=== PATIENT | female | born 1995 | race Hispanic/Latino ===

== ENCOUNTER 2018-05-29 21:14 | Day surgery (SDC) | payer OTHER ==
[2018-05-29 21:50] VITALS: BP 132/90; TEMP 98.9; BMI 37.1
[2018-05-29 22:20] LABS: Amnisure Test No Membranes Rupture (No Rupture)
[2018-05-29 22:21] LABS: Amnisure Internal Control QC ACCEPTABLE (ACCEPTABLE)
--- NOTE | 2018-05-29 23:30 | PRG ---
DATE OF SERVICE: 05/29/2018 OB ED NOTE TIME OF SERVICE: 2234 PRESENTING COMPLAINTS: Contractions at 39 weeks. HISTORY OF PRESENT ILLNESS: Robby is a patient of Dr. Muhammad, with an LISS of 06/03, placing her at 39 weeks gestation. She is a 22-year-old, G3, P2. No other details of her OB history are noted in the antepartum record. She seems to had an uncomplicated with multiple visits in her early involvement of care. She is blood type O positive, antibody negative, Pap negative, rubella immune, VDRL nonreactive. Hepatitis B, GC, chlamydia negative. Group B strep negative. She complains of mild contractions and possible rupture of membranes. PAST MEDICAL HISTORY: Denies. PAST SURGICAL HISTORY: Denies. ALLERGIES: DENIES. MEDICATIONS: vitamins. SOCIAL HISTORY: Denies tobacco, alcohol, or drug use. FAMILY HISTORY: Noncontributory. REVIEW OF SYSTEMS: Noncontributory. PHYSICAL EXAMINATION: GENERAL: female, in no acute distress. VITAL SIGNS: Blood pressure 122/82, pulse 85, respirations 18, temperature 98.2. HEENT within normal limits. LUNGS: Clear to auscultation bilaterally. HEART: Regular rhythm. ABDOMEN: Soft and nontender. Occasional abdominal contractions. FHTs are 130s to 140s. GENITALIA: Vulva without lesions. Vagina is without discharge. Cervix 2, 50, -2, cephalic, ballots by RN exam. AmniSure was collected and was negative. EXTREMITIES: No clubbing, cyanosis, or edema. heart rate tracing was carried out for greater than 30 minutes revealed a reactive strip, occasional contractions, and a category 1 tracing. No evidence of active labor was noted. IMPRESSION: No evidence of rupture of membranes. No evidence of active labor, 39 weeks gestation. PLAN: Discharge home. Keep scheduled followup with Dr. Muhammad. The patient has scheduled induction of labor on 06/06/2018. Job ID: [id number]
== END 2018-05-29 22:40 | disposition home or self-care (01) ==
LOC: L&D/OP 21:14
PROVIDERS: ATTEND Family Medicine
DX: O47.1 False labor at or after 37 completed weeks of gestation (principal); Z3A.39 39 weeks gestation of pregnancy
CPT/HCPCS: 84112; 99283

== ENCOUNTER 2018-06-05 11:43 | Inpatient (IN) | payer MEDICAID, OTHER, SELFPAY ==
[2018-06-05] MEDS ORDERED: Ondansetron PF 4 MG/2 ML Vial IVP PRN ×3 (12:14→16:48)
[2018-06-05] MEDS ORDERED: Ibuprofen 800 MG TAB PO PRN (12:14)
[2018-06-05] MEDS ORDERED: Lidocaine 1% (PF) 30 ML VIAL SC PRN (12:14)
[2018-06-05] MEDS ORDERED: HYDROcodone/Acetaminophen 5/325 mg Tablet PO PRN ×4 (12:14→16:48)
[2018-06-05] MEDS ORDERED: Promethazine HCl 25 MG/ML VIAL IM PRN ×2 (12:14→13:50)
[2018-06-05] MEDS ORDERED: Butorphanol Tartrate 1 MG/ML VIAL SLOW IVP PRN (12:14)
[2018-06-05] MEDS ORDERED: NS / Oxytocin 40 units/1000ml 1,000 ML IV PRN (12:14)
[2018-06-05] MEDS ORDERED: NS w/ Oxytocin 10 units 500 ML IV SCH (12:15)
[2018-06-05] MEDS ORDERED: Lactated Ringer's 1,000 ML IV SCH (12:15)
[2018-06-05] MEDS: Lactated Ringer's 1,000 ML IV SCH ×2 (12:33→13:57)
[2018-06-05 12:38] LABS: Mean Corpuscular HGB CONC 32.6 g/dL (32.0-36.0); Mean Corpuscular Hemoglobin 26.5 pg (27.0-31.0); Mean Corpuscular Volume 81.1 fL (78.0-98.0); Mean Platelet Volume 8.7 fL (7.4-10.4); Platelet Count 256 thou/uL (130-400); RBC Distribution Width 13.8 % (11.5-14.5); Red Blood Cell (RBC) Count 4.53 mill/uL (4.20-5.40); White Blood Cell (WBC) Count 9.6 thou/uL (4.8-10.8)
[2018-06-05 12:52] VITALS: BMI 37.1
[2018-06-05] MEDS ORDERED: Fentanyl 4 mcg/Bup 0.1% Cadd 100 ML ONE (13:02)
[2018-06-05 13:09] LABS: Syphilis Antibody Nonreactive (Nonreactive); Syphilis Antibody Index 0.03 S/CO (<1.00 Non-Reactive)
[2018-06-05 13:10] LABS: HBSAg Index 0.22 S/CO (0-0.99); Hep B Surf Ag Non-Reactive S/CO (NonReactive)
[2018-06-05] MEDS ORDERED: Lidocaine 1.5% w/Epi 1:200K 30 ML VIAL (Epid Use) ONE (13:16)
[2018-06-05] MEDS ORDERED: diphenhydrAMINE 50 MG/ML VIAL IVP PRN (13:50)
[2018-06-05] MEDS ORDERED: Acetaminophen 325 MG TAB PO PRN (13:50)
[2018-06-05] MEDS ORDERED: Naloxone HCl 0.4 mg/ml Vial IVP PRN ×2 (13:50)
[2018-06-05] MEDS ORDERED: Eucerin (Mineral Oil/Petrolatum,White) 30 gm Jar TOP PRN (13:50)
[2018-06-05] MEDS ORDERED: Lactated Ringer's 500 ML IV PRN (13:50)
[2018-06-05] MEDS ORDERED: ePHEDrine/0.9% NaCl/PF SYRINGE 50 mg/10 ml SLOW IVP PRN (13:50)
[2018-06-05] MEDS ORDERED: Fentanyl 4 mcg/Bupivacaine 0.1% Cassette 100 ML EPIDURAL SCH (14:00)
[2018-06-05] MEDS ORDERED: Communication Order-Pharmacy FS SCH (14:00)
[2018-06-05] MEDS ORDERED: Preparation H Ointment 28 GM TUBE PR PRN (16:48)
[2018-06-05] MEDS ORDERED: Bisacodyl 10 MG SUPP PR PRN (16:48)
[2018-06-05] MEDS ORDERED: Milk Of Magnesia 30 ML UDCUP PO PRN (16:48)
[2018-06-05] MEDS ORDERED: Benzocaine/Menthol 20-0.5% 60 ML CAN TOP PRN (16:48)
[2018-06-05] MEDS ORDERED: NS / Oxytocin 40 units/1000ml 1,000 ML IV SCH (16:48)
[2018-06-05] MEDS ORDERED: diphenhydrAMINE 25 MG CAP PO PRN (16:48)
[2018-06-05] MEDS: Ferrous Sulfate 325 MG TAB PO SCH (18:46)
[2018-06-05] MEDS: Docusate Calcium (SURFAK) 240 MG CAP PO SCH (22:04)
[2018-06-05] MEDS: Ibuprofen 800 MG TAB PO SCH (22:04)
[2018-06-06] MEDS: Ibuprofen 800 MG TAB PO SCH ×2 (06:17→13:40)
[2018-06-06 06:37] LABS: Hemoglobin 10.9 g/dL (12.0-16.0); Mean Corpuscular HGB CONC 32.7 g/dL (32.0-36.0); Mean Corpuscular Hemoglobin 27.1 pg (27.0-31.0); Mean Corpuscular Volume 82.8 fL (78.0-98.0); Mean Platelet Volume 8.5 fL (7.4-10.4); Platelet Count 202 thou/uL (130-400); RBC Distribution Width 13.8 % (11.5-14.5); Red Blood Cell (RBC) Count 4.03 mill/uL (4.20-5.40); White Blood Cell (WBC) Count 9.9 thou/uL (4.8-10.8)
[2018-06-06] MEDS: Docusate Calcium (SURFAK) 240 MG CAP PO SCH (08:47)
[2018-06-06] MEDS: Ferrous Sulfate 325 MG TAB PO SCH ×2 (08:48→15:18)
[2018-06-06] MEDS ORDERED: Prenatal Vitamin 1 TAB PO SCH (09:00)
[2018-06-06] MEDS ORDERED: Measles/Mumps/Rubella 10 MCG/0.5 ML VIAL SC ONE (14:00)
[2018-06-06 17:35] VITALS: BP 143/87; TEMP 98.2
== END 2018-06-06 18:20 | disposition home or self-care (01) | DRG 807 ==
LOC: L&D/OP 11:43 → L&D 12:18 → 3SW 18:06
PROVIDERS: ADMIT Family Medicine; ATTEND Family Medicine
PROC: 10E0XZZ Delivery of Products of Conception, External Approach (ICD-10-PCS; principal; 2018-06-05)
PROC: 10907ZC Drainage of Amniotic Fluid, Therapeutic from Products of Conception, Via Natural or Artificial Opening (ICD-10-PCS; 2018-06-05)
PROC: 0UQGXZZ Repair Vagina, External Approach (ICD-10-PCS; 2018-06-05)
PROC: 3E0234Z Introduction of Serum, Toxoid and Vaccine into Muscle, Percutaneous Approach (ICD-10-PCS; 2018-06-06)
DX: O69.1XX0 Labor and delivery complicated by cord around neck, with compression, not applicable or unspecified (principal); Z37.0 Single live birth; O48.0 Post-term pregnancy; Z3A.40 40 weeks gestation of pregnancy; Z23 Encounter for immunization
CPT/HCPCS: 36415; 51702; 85027; 86780; 86850; 86900; 86901; 87340; 90707; 99285; J2001